=== PATIENT | male | born 1980 | race Caucasian/White ===

== ENCOUNTER 2023-03-21 07:23 | Emergency (ER) | payer OTHER, SELFPAY ==
--- NOTE | ~2023-03-21 | XR_ITS ---
EXAMINATION: XR CHEST 2 VIEW CLINICAL INFORMATION: Shortness of breath, COVID positive COMPARISON: None TECHNIQUE: PA and lateral views of the chest obtained. FINDINGS: The lungs are clear. There are no pleural effusions. The cardiomediastinal silhouette is normal. XR/XR chest 2V IMPRESSION: No active cardiopulmonary disease.
[2023-03-21 07:33] VITALS: BP 113/71; BP 132/74; PULSE 109; PULSE 118; RESP 18; TEMP 37.7; O2SAT 96; BMI 27.3
--- NOTE | 2023-03-21 07:34 | ED_ITS ---
HPI - URI/Sore Throat General Chief Complaint: Upper Respiratory Symptoms Stated Complaint: DIFF BREATHING,+COVID Time Seen by Provider: 03/21/23 07:26 Source: patient and EMS Mode of arrival: EMS Limitations: no limitations History of Present Illness HPI Narrative: 42-year-old male with no major medical problems presents with difficulty breathing, myalgias, headache. Symptoms started yesterday. Symptoms are se jose manuel. Patient has cough, shortness breath. Symptoms are worse with exertion. He has developed a headache. He has had some nausea associated with cough but no other nausea vomiting, diarrhea. 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 Prior treatment included Tylenol and ibuprofen last night. Patient took a home COVID test which is positive. Related Data Previous Rx's Medication Instructions Recorded nirmatrelvir 300 mg (150 mg See Rx Instructions PO .COMPLEX 03/21/23 x2)-ritonavir 100 mg tablet,dose #30 ea pack (Paxlovid) Allergies Allergy/AdvReac Type Severity Reaction Status Date / Time codeine [CODEINE] AdvReac Unknown N/V Unverified 04/21/20 19:43 DIZINESS Review of Systems Review of Systems: CONSTITUTIONAL: Denies weight loss, fever and chills. HEENT: Denies changes in vision and hearing. RESPIRATORY: + SOB and cough. CV: Denies palpitations no CP. GI: Denies abdominal pain, +nausea, -vomiting and diarrhea. : Denies dysuria and urinary frequency. MSK: Denies myalgia and joint pain. SKIN: Denies rash and pruritus. NEUROLOGICAL: + headache - syncope. PSYCHIATRIC: Denies recent changes in mood. Denies anxiety and depression. All other ROS are negative unless in HPI PMFSH Social History Social History Advance Directives: No Advance Directives Information Provided: No Physical Exam Vital Signs: Vital Signs: Last Vital Signs Temp 99.9 F 03/21/23 07:33 Pulse 118 H 03/21/23 07:33 Resp 18 03/21/23 07:33 BP 113/71 03/21/23 07:33 Pulse Ox 96 03/21/23 07:33 O2 Del Method Room Air 03/21/23 07:33 BMI result Body Mass Index 27.3 GEN: Well developed, no acute distress, alert, oriented HEENT: Normocephalic, atraumatic, normal external ears, nose appears normal, no oropharyngeal edema or exudates Eyes: Normal to appearance Neck: Supple, no lymphadenopathy Respiratory: Talks in complete sentences, no respiratory distress, clear to auscultation bilaterally Cardiovascular: Regular rate and rhythm, no murmurs rubs or gallops Abdomen: Soft, nontender, nondistended, no guarding, no rebound Back: No CVA tenderness Extremities: No clubbing cyanosis or edema Neurologic: No focal neurologic deficits, cranial nerves 2-12 intact, strength is 5/5 bilaterally Skin: No rash Course Course Course Narrative: A complete. Patient test positive for COVID. Chest x-ray reveals no acute cardiopulmonary infiltrates. Will place patient on Paxil that. Patient has received a dose of dexamethasone. He does not require an inhaler at this time. Will recommend supportive therapy. He can return for any worsening or concerning symptoms. Medications Administered Discontinued Medications Generic Name Dose Route Start Last Admin Trade Name Prasadq PRN Reason Stop Dose Admin Acetaminophen 975 mg 03/21/23 07:31 03/21/23 07:44 Acetaminophen 325 Mg Tablet PO 03/21/23 07:32 975 mg ONCE ONE Administration Dexamethasone 10 mg 03/21/23 07:33 03/21/23 07:45 Dexamethasone 2 Mg Tablet PO 03/21/23 07:34 10 mg ONCE ONE Administration Guaifenesin/Dextromethorphan 10 ml 03/21/23 07:33 03/21/23 07:45 Guaifenesin Dm 200/20/10 Ml 10 Ml Syrup PO 03/21/23 07:34 10 ml ONCE ONE Administration Ibuprofen 600 mg 03/21/23 07:33 03/21/23 07:44 Ibuprofen 600 Mg Tablet PO 03/21/23 07:34 600 mg ONCE ONE Administration Medical Decision Making Medical Decision Making [facility] Narrative: Patient presents with upper respiratory symptoms. Differential diagnosis includes COVID, pneumonia, bronchitis, influenza, viral illness Plan: Chest x-ray, COVID test Treatment: Dexamethasone, Tylenol, ibuprofen, cough suppressant medication Differential Diagnosis Differential Diagnoses: The differential diagnosis associated with the presentation includes (See above) COVID infection Admission/Observation Consideration of admission/observation: Escalation of care including admiss ion/observation considered Lab Data [facility] Lab Attestation statement: I reviewed the patient's lab results. Labs: Lab Results 03/21/23 Range/Units 07:43 COVID-19 (TERESO) Positive A (Negative) COVID-19 Clin Com See Note Independent Interpretation I performed an independent interpretation of an: Plain X-Ray Independent Historian Clinical information obtained from an independent historian. History obtained from or confirmed by: EMS Discharge Plan Discharge Clinical Impression: COVID Patient Disposition: Home, Self-Care Prescriptions: New Paxlovid 300 mg (150 mg x 2)-100 mg tablets,dose pack See Rx Instructions .ROUTE .COMPLEX Qty: 30 0RF Rx Instructions: take TWO 150 mg tablets of nirmatrelvir with ONE 100 mg tablet of ritonavir twice daily for 5 days Referrals: Physician,None [Primary Care Provider] - 1 week (PMD if needed) Stand Alone Forms: Work/School Release
[2023-03-21] MEDS: Acetaminophen 325 MG TABLET 975 MG PO (07:44)
[2023-03-21] MEDS: Ibuprofen 600 MG TABLET PO (07:44)
[2023-03-21] MEDS: dexAMETHasone 2 MG TABLET 10 MG PO (07:45)
[2023-03-21] MEDS: guaiFENesin DM 200/20/10 ML 10 ML SYRUP PO (07:45)
[2023-03-21 08:00] VITALS: RESP 18
[2023-03-21 08:04] LABS: COVID-19 Test Positive (Negative); IDNOW Serial# BCCEAD1C
== END 2023-03-21 08:22 | disposition home or self-care (01) ==
PROVIDERS: Emergency Provider Emergency Medicine
DX: U07.1 COVID-19 (principal); R06.02 Shortness of breath
CPT/HCPCS: 71046; 87635; 99283; 99284; J8540